=== PATIENT | male | born 1980 | race Caucasian/White ===

== ENCOUNTER 2022-03-07 10:01 | Emergency (ER) | payer OTHER ==
[2022-03-07 10:10] VITALS: BMI 29.0
[2022-03-07] MEDS ORDERED: FAMOTIDINE 20 MG/50 ML IVPB 20 MG/50 ML MG IVPB ONE ×2 (10:45→11:05)
[2022-03-07] MEDS ORDERED: SODIUM CHLORIDE 1,000 ML IV ONE ×2 (10:45→11:54)
[2022-03-07] MEDS ORDERED: ONDANSETRON 4 MG/2 ML VIAL IVPB ONE (10:45)
[2022-03-07] MEDS ORDERED: ONDANSETRON 4 MG/2 ML VIAL ONE (10:52)
[2022-03-07 11:24] LABS: VENOUS BASE EXCESS -1.6 mmol/L (-2-2); VENOUS O2 SATURATION 92.1 % (70-80); VENOUS PCO2 46.8 mmHg (38-52); VENOUS PH 7.34 (7.310-7.410)
[2022-03-07 11:30] LABS: BASO % 0.5 % (0-2.0); EOS % 0.1 % (0-4.5); HEMOGLOBIN 16.1 GM/dL (11.7-16.9); LYMPH % 25.2 % (8-40); MCH 27.4 pg (25.7-33.7); MCHC 32.1 g/dl (32.0-35.9); MEAN CELL VOLUME 85.3 fl (80-96); MEAN PLT VOLUME 7.5 fl (7.5-11.1); MONO % 7.2 % (3.8-10.2); PLATELET COUNT 359 10^3/uL (134-434); RBC 5.86 M/mm3 (4.00-5.60); WHITE BLOOD COUNT 5.3 K/mm3 (4.0-10.0)
[2022-03-07 11:45] LABS: CALCIUM 8.7 mg/dL (8.5-10.1)
[2022-03-07 11:46] LABS: BLOOD UREA NITROGEN 10.4 mg/dL (7-18)
[2022-03-07 11:49] LABS: CREATININE 0.8 mg/dL (0.55-1.3)
[2022-03-07 11:50] LABS: BILIRUBIN,TOTAL 0.4 mg/dL (0.2-1); TOT PROT 8.6 g/dl (6.4-8.2)
[2022-03-07] MEDS ORDERED: chlordiazePOXIDE HCL 25 MG CAPSULE PO ONE (11:54)
[2022-03-07 12:17] VITALS: BP 150/96; PULSE 99; RESP 20; TEMP 98.3
[2022-03-07] MEDS ORDERED: chlordiazePOXIDE HCL 25 MG CAPSULE ONE (12:23)
[2022-03-07] MEDS ORDERED: ACETAMINOPHEN 1000 MG/100 ML BAG IVPB ONE (12:49)
[2022-03-07] MEDS ORDERED: ACETAMINOPHEN INJECTION 100 ML IVPB ONE (13:10)
[2022-03-07] MEDS ORDERED: METOCLOPRAMIDE HCL INJECTION 10 MG/2 ML VIAL IVPUSH ONE (13:50)
[2022-03-07] MEDS ORDERED: METOCLOPRAMIDE HCL INJECTION 10 MG/2 ML VIAL ONE (14:57)
[2022-03-07] MEDS ORDERED: OXYMETAZOLINE 0.05% NASAL SOLUTION 15 ML BOTTLE NS ONE (15:28)
[2022-03-07] MEDS ORDERED: OSELTAMIVIR PHOSPHATE 75 MG CAPSULE PO ONE (16:19)
[2022-03-07] MEDS ORDERED: OSELTAMIVIR PHOSPHATE 75 MG CAPSULE ONE (17:05)
== END 2022-03-07 17:21 | disposition home or self-care (01) ==
LOC: JER 10:01
PROC: 3E033GC Introduction of Other Therapeutic Substance into Peripheral Vein, Percutaneous Approach (ICD-10-PCS; principal; 2022-03-07)
DX: J09.X2 Influenza due to identified novel influenza A virus with other respiratory manifestations (principal); F10.929 Alcohol use, unspecified with intoxication, unspecified
CPT/HCPCS: 0241U-QW; 36415; 70450-TC; 80053; 80307; 82010; 82803; 83690; 85025; 99285-25

== ENCOUNTER 2022-03-07 17:58 | Inpatient (IN) | payer SELFPAY ==
[2022-03-07 19:52] VITALS: BMI 26.9
[2022-03-07] MEDS ORDERED: BENZOCAINE/MENTHOL (CHLORASEPTIC ) LOZENGE MM PRN (20:28)
[2022-03-07] MEDS ORDERED: IBUPROFEN 400 MG TABLET (FP) PO PRN (20:28)
[2022-03-07] MEDS ORDERED: POLYETHYLENE GLYCOL (HEALTHYLAX) 3350 17 GM PACKET PO PRN (20:28)
[2022-03-07] MEDS ORDERED: IBUPROFEN 600 MG TABLET (FP) PO PRN (20:28)
[2022-03-07] MEDS ORDERED: DICYCLOMINE HCL 10 MG CAPSULE PO PRN (20:28)
[2022-03-07] MEDS ORDERED: METHOCARBAMOL 500 MG TABLET PO PRN (20:28)
[2022-03-07] MEDS ORDERED: BISMUTH SUBSALICYLATE 524 MG/30 ML PO PRN (20:28)
[2022-03-07] MEDS ORDERED: ONDANSETRON *ODT* 4 MG TABLET SL PRN (20:28)
[2022-03-07] MEDS ORDERED: MAGNESIUM HYDROX 2400MG/30ML ORAL SUSPENSION 30 ML CUP PO PRN (20:28)
[2022-03-07] MEDS ORDERED: NALOXONE HCL (KLOXXADO) 8 MG SPRAY NS PRN (20:28)
[2022-03-07] MEDS ORDERED: ACETAMINOPHEN 325 MG TABLET (FP) PO PRN (20:28)
[2022-03-07] MEDS ORDERED: LOPERAMIDE HCL 2 MG CAPSULE PO PRN (20:28)
[2022-03-07] MEDS ORDERED: MAG HYDROX/AL HYDROX/SIMETH 30 ML UNIT-DOSE CUP PO PRN (20:28)
[2022-03-07] MEDS: ACETAMINOPHEN 325 MG TABLET (FP) PO PRN (21:20)
[2022-03-07] MEDS: chlordiazePOXIDE HCL 25 MG CAPSULE PO PRN (21:22)
[2022-03-07] MEDS ORDERED: MELATONIN 5 MG TABLETS PO SCH (22:00)
[2022-03-07] MEDS ORDERED: OSELTAMIVIR PHOSPHATE 75 MG CAPSULE PO SCH (22:00)
[2022-03-07] MEDS ORDERED: THIAMINE HCL 100 MG TABLET (FP) PO SCH (22:00)
[2022-03-07] MEDS: OSELTAMIVIR PHOSPHATE 75 MG CAPSULE PO SCH (22:37)
[2022-03-07] MEDS: chlordiazePOXIDE HCL 25 MG CAPSULE PO SCH (22:41)
[2022-03-08] MEDS: chlordiazePOXIDE HCL 25 MG CAPSULE PO PRN (02:05)
[2022-03-08] MEDS: chlordiazePOXIDE HCL 25 MG CAPSULE PO SCH ×2 (05:59→10:22)
[2022-03-08] MEDS: OSELTAMIVIR PHOSPHATE 75 MG CAPSULE PO SCH (09:46)
[2022-03-08] MEDS: ACETAMINOPHEN 325 MG TABLET (FP) PO PRN (09:47)
[2022-03-08] MEDS ORDERED: PRENATAL VITAMINS W/ FOLIC ACID TABLET (FP) PO SCH (10:00)
[2022-03-08 11:52] LABS: HEMATOCRIT 44.2 % (35.4-49); HEMOGLOBIN 14.6 GM/dL (11.7-16.9); MCH 28.2 pg (25.7-33.7); MEAN CELL VOLUME 85.5 fl (80-96); MEAN PLT VOLUME 7.7 fl (7.5-11.1); PLATELET COUNT 298 10^3/uL (134-434); RBC 5.17 M/mm3 (4.00-5.60); RDW 16.8 % (11.9-15.9); WHITE BLOOD COUNT 4.1 K/mm3 (4.0-10.0)
[2022-03-08 11:53] LABS: CALCIUM 8.6 mg/dL (8.5-10.1)
[2022-03-08 11:54] LABS: ALBUMIN 3.7 g/dl (3.4-5.0); BLOOD UREA NITROGEN 6.4 mg/dL (7-18)
[2022-03-08 11:57] LABS: CREATININE 0.7 mg/dL (0.55-1.3)
[2022-03-08 11:58] LABS: BILIRUBIN,TOTAL 0.7 mg/dL (0.2-1); TOT PROT 7.9 g/dl (6.4-8.2)
[2022-03-08 12:59] VITALS: RESP 18
[2022-03-08 16:52] VITALS: PULSE 102; TEMP 97.7
[2022-03-08 16:53] VITALS: BP 155/106
[2022-03-09] MEDS ORDERED: chlordiazePOXIDE HCL 25 MG CAPSULE PO SCH (05:00)
[2022-03-10] MEDS ORDERED: chlordiazePOXIDE HCL 10 MG CAPSULE PO PRN
[2022-03-10] MEDS ORDERED: chlordiazePOXIDE HCL 10 MG CAPSULE PO SCH (05:00)
[2022-03-11] MEDS ORDERED: chlordiazePOXIDE HCL 10 MG CAPSULE PO SCH (05:00)
[2022-03-12] MEDS ORDERED: chlordiazePOXIDE HCL 10 MG CAPSULE PO ONE (05:00)
== END 2022-03-08 17:25 | disposition left against medical advice (07) | DRG 770 ==
LOC: YASAS 17:58 → Y3N 20:35
PROVIDERS: ADMIT Allergy & Immunology; ATTEND Surgery
PROC: HZ2ZZZZ Detoxification Services for Substance Abuse Treatment (ICD-10-PCS; principal; 2022-03-07)
DX: F10.230 Alcohol dependence with withdrawal, uncomplicated (principal); J09.X2 Influenza due to identified novel influenza A virus with other respiratory manifestations; Z87.891 Personal history of nicotine dependence
CPT/HCPCS: 36415; 80053; 85027; 86780; 93005; 93010; Q0162